=== PATIENT | female | born 1980 | race Caucasian/White ===

== ENCOUNTER 2017-11-25 08:03 | Day surgery (SDC) | payer OTHER ==
[2017-11-22 09:47] LABS: APPEARANCE,URINE CLEAR; BILIRUBIN,URINE NEGATIVE (NEGATIVE); COLOR,URINE COLORLESS; GLUCOSE, URINE NEGATIVE (NEGATIVE); KETONES,URINE NEGATIVE (NEGATIVE); LEUKOCYTE ESTERASE,URINE NEGATIVE (NEGATIVE); NITRITE,URINE NEGATIVE (NEGATIVE); PROTEIN,URINE NEGATIVE (NEGATIVE); URINE SPECIFIC GRAVITY 1.003; UROBILINOGEN,URINE NEGATIVE mg/dL (<2.0)
[2017-11-22 10:40] LABS: HEMATOCRIT 40.8 % (36.0-47.0); HEMOGLOBIN 13.8 g/dL (12.0-15.5); MEAN CORPUSCULAR HEMOGLOBIN 30.7 pg (27.0-33.4); MEAN CORPUSCULAR HGB CONC 33.8 g/dL (32.0-36.0); MEAN CORPUSCULAR VOLUME 91 fl (80-97); PLATELET COUNT 283 10^3/uL (150-450); RED BLOOD COUNT 4.49 10^6/uL (3.72-5.28); RED CELL DISTRIBUTION WIDTH 13.2 % (11.5-14.0); WHITE BLOOD COUNT 5.8 10^3/uL (4.0-10.5)
[2017-11-22 10:56] LABS: ALANINE AMINOTRANSFERASE 23 U/L (9-52); ALBUMIN 4.8 g/dL (3.5-5.0); ALKALINE PHOSPHATASE 37 U/L (38-126); ANION GAP 12 (5-19); ASPARTATE AMINO TRANSFERASE 15 U/L (14-36); BILIRUBIN,DIRECT 0.2 mg/dL (0.0-0.4); BILIRUBIN,TOTAL 0.5 mg/dL (0.2-1.3); BLOOD UREA NITROGEN 11 mg/dL (7-20); CALCIUM 9.9 mg/dL (8.4-10.2); CARBON DIOXIDE 26 mmol/L (22-30); CHLORIDE 104 mmol/L (98-107); GLUCOSE 86 mg/dL (75-110); POTASSIUM 4.2 mmol/L (3.6-5.0); SODIUM 142.1 mmol/L (137-145); TOTAL PROTEIN 7.5 g/dL (6.3-8.2)
[~2017-11-25 08:03] MED LIST: BUPIVACAINE HCL 0.25 % INJ/PF (2.5 MG/1 ML) 30 ML VIAL ONE; CEFAZOLIN 2 GM/D5W RTU 2 GM/50 ML RTUPB IV PRN; GABAPENTIN 400 MG CAPSULE PO PRN; LACTATED RINGERS 1000 ML IV PRN; LIDOCAINE 0.5% INJ-PF (5 MG/ML) 50 ML SDV SUBCUT PRN
[2017-11-25] MEDS ORDERED: LIDOCAINE 2% INJ-PF (20 MG/ML) 10 ML AMPUL ONE (10:12)
[2017-11-25] MEDS ORDERED: ACETAMINOPHEN 1,000 MG/100 ML RTUPB IV ONE (10:13)
[2017-11-25] MEDS ORDERED: HYDROMORPHONE HCL INJ/PF 2 MG/ML AMPULE ONE (10:13)
[2017-11-25] MEDS ORDERED: PROPOFOL INJ 200 MG/20 ML VIAL IV ONE (10:13)
[2017-11-25] MEDS ORDERED: MIDAZOLAM 2 MG/2 ML INJ ONE (10:13)
[2017-11-25] MEDS ORDERED: EPHEDRINE SULFATE INJ 50 MG/1 ML AMPULE ONE (10:13)
[2017-11-25] MEDS ORDERED: FENTANYL CITRATE INJ/PF 100 MCG/2 ML AMPUL IV PRN ×3 (12:08)
[2017-11-25] MEDS ORDERED: DIPHENHYDRAMINE HCL 50 MG/ML VIAL IV PRN (12:08)
[2017-11-25] MEDS ORDERED: ONDANSETRON HCL INJ/PF 4 MG/2 ML SDV IV PRN ×2 (12:08→13:10)
[2017-11-25] MEDS ORDERED: MEPERIDINE HCL/PF INJ 25 MG/1 ML DISP.SYRIN IV PRN (12:08)
[2017-11-25] MEDS ORDERED: PROMETHAZINE HCL INJ 25 MG/1 ML VIAL IV PRN ×2 (12:08)
[2017-11-25] MEDS ORDERED: OXYCODONE-ACETAMINOPHEN 5-325 MG TABLET PO PRN ×3 (12:08→13:10)
--- NOTE | 2017-11-25 12:47 | Discharge Summary ---
Discharge Summary (SDC) - Discharge Final Diagnosis: Pelvic pain Endometriosis Date of Surgery: 11/25/17 Discharge Date: 11/25/17 Condition: Good Forms: Post Operative Treatment or Instructions: Robotic assisted total laparoscopic hysterectomy Bilateral salpingectomy Referrals: DEREK PENNINGTON MD [NO LOCAL MD] - (Please call [phone] or [phone] to schedule your 2-3 week and 6-8 week postop appointments. If you are having clinical questions or concerns please call ROBBIE Shannon at [phone]. ) Discharge Diet: As Tolerated Respiratory Treatments at Home: Deep Breathing/Coughing Discharge Activity: Activity As Tolerated, Balance Activity w/Rest, Pelvic Rest , Slowly Increase Activity, No tub bath - you may shower Home Care Assistance: None Needed Report the Following to Your Physician Immediately: Vomiting, Increase in Pain, Fever over 101 Degrees, Redness, Swelling, Warmth, Drainage-Foul Smelling, Increased Vaginal Bleed, Urinary Infection Signs
[2017-11-25] MEDS ORDERED: FENTANYL CITRATE INJ/PF 100 MCG/2 ML AMPUL ONE (13:22)
[2017-11-25] MEDS ORDERED: ONDANSETRON HCL INJ/PF 4 MG/2 ML SDV ONE (14:34)
[2017-11-25] MEDS ORDERED: DEXAMETHASONE SOD PHOSPHATE INJ 4 MG/1 ML VIAL ONE (14:34)
[2017-11-25] MEDS ORDERED: KETOROLAC TROMETHAMINE 60 MG/2 ML SDV ONE (14:34)
[2017-11-25] MEDS ORDERED: ROCURONIUM BROMIDE INJ 50 MG/5 ML VIAL IV ONE (14:34)
[2017-11-25] MEDS ORDERED: VECURONIUM BROMIDE INJ 10 MG VIAL IV ONE (14:34)
[2017-11-25] MEDS ORDERED: METOCLOPRAMIDE HCL INJ/PF 10 MG/2 ML SDV ONE (14:34)
[2017-11-25] MEDS ORDERED: NEOSTIGMINE METHYLSULFATE 10 MG/10 ML VIAL ONE (14:34)
[2017-11-25] MEDS ORDERED: GLYCOPYRROLATE 1 MG/5 ML SYRINGE ONE (14:34)
[2017-11-25 17:54] VITALS: BP 113/79
--- NOTE | 2017-12-02 11:13 | OPERATIVE REPORT E ---
Operative Report NAME: HAMLET DUMONT : 1980 AGE: 37Y DATE OF SURGERY: 11/25/2017 ROOM: 224 PREOPERATIVE DIAGNOSES: 1. Pelvic pain. 2. Uterine fibroids. 3. Menorrhagia. POSTOPERATIVE DIAGNOSES: 1. Pelvic pain. 2. Uterine fibroids. 3. Menorrhagia. PROCEDURE: Robotic-assisted total laparoscopic hysterectomy with bilateral salpingectomy. SURGEON: DEREK PENNINGTON M.D. CAMPAIGN MANAGER: JANES FUENTES M.D. ANESTHESIA: General. COMPLICATIONS: None. ESTIMATED BLOOD LOSS: 100 mL. URINE OUTPUT: Clear at the end of the procedure. SPECIMENS: Uterus, cervix, and bilateral fallopian tubes. FINDINGS: Enlarged uterus, normal fallopian tubes, and normal-appearing ovaries bilaterally. INDICATIONS: This is a 37-year-old female with a history of pelvic pain, pelvic pressure, and menorrhagia refractory to medical management. After discussing the risks, benefits, and alternatives, including but not limited to observation, further medical management, physical therapy, endometrial ablation, uterine artery embolization, operative hysteroscopy, an open abdominal hysterectomy, total vaginal hysterectomy were all discussed with the patient and she elected for the above procedure. PROCEDURE NOTE: After the patient was properly consented, she was taken to the operating room where general anesthesia was then introduced and endotracheal intubation. The patient was transferred to a dorsal lithotomy position using adjustable Fuad stirrups and prepped and draped in the usual sterile fashion. A surgical timeout was held. We began with the placement of a VCare uterine manipulator in the typical fashion. A Butler catheter was inserted. Gloves were then changed and we proceeded above where 0.25% plain Marcaine local anesthetic was placed supraumbilically. A 12 mm skin incision was made with the scalpel followed by a Veress needle introduced into the peritoneal cavity with correct placement ascertained by drop in CO2 pressure to 2 mmHg. Pneumoperitoneum was established to a pressure of 15 mmHg. A 12 mm bladeless trocar was advanced into the pneumoperitoneum and immediate visualization with the camera demonstrated an atraumatic entry. We subsequently placed 2 right and 1 left lateral port following the typical routine of local anesthetic followed by a skin incision and placement of the port under direct visualization. With all ports in place, the patient was put in steep Trendelenburg position. The robot was then docked and I scrubbed out and proceeded to the robotic console. Pelvic anatomy was inspected and the findings were noted above. The ureters were identified by peristalsis in their usual course at the pelvic brim bilaterally. Dissection was began on the right side using the fenestrated bipolar grafts and the vessel sealer. The round ligament on the right was cauterized and transected. Next, the broad ligament was opened and dissected inferiorly and anteriorly to create the bladder flap, which was reduced inferiorly. Next, the fallopian tube was dissected from the tubo-ovarian ligament. This dissection was then continued along the lateral portion of the uterine body to connect with the previously transected round ligament by way also cauterizing the utero-ovarian ligament. The broad ligament was opened and the uterine artery was dissected out, identified, and then cauterized and transected as the area next to the lower uterine segment. Then, being very careful to hug the uterus during this portion of the surgery, the dissection was continued along the side of the cervix to the top of the coring. The same dissection was repeated on the left side. The areas of dissection were noted to be hemostatic. Next, the edge of the VCare cervical cup was identified and the vessel sealer was switched out for monopolar scissors. The colpotomy was initiated with monopolar scissors and carried out circumferentially until the specimen was freed and pulled through the vagina. The vaginal cuff was then closed with a running V-Loc suture incorporating the uterosacral pedicles for support as well. The pelvis was then irrigated copiously and hemostasis was noted to be excellent. FloSeal hemostatic agent was applied to the vaginal cuff. The abdomen was deflated and the robot was undocked and all instruments were removed. All CO2 insufflation was relieved. The patient was taken out of Trendelenburg and attention was turned to the 12 mm port site fascia, which was closed with an 0 Vicryl suture. The skin of the 8 and 12 mm laparoscopic ports were closed with 4-0 Monocryl in a subcuticular fashion and a Dermabond dressing was applied. Next, the Butler catheter was removed and a sponge stick was used to make sure that there was no extensive bleeding or lacerations in the vagina. After this, anesthesia was reversed. Sponge, lap, and needle counts were correct at the end of the procedure, and the patient was taken to the PACU in stable condition. DICTATING PHYSICIAN: DEREK PENNINGTON M.D. [id number] PHY#: [id number] ID: [id number] JOB#: [id number] ACCT: [id number] cc:DEREK PENNINGTON M.D. >
== END 2017-11-25 18:00 | disposition home or self-care (01) ==
LOC: OROUT 08:03 → 2S 14:22 → OROUT 18:00
PROVIDERS: ATTEND Obstetrics & Gynecology
DX: N80.0 Endometriosis of uterus (principal); D25.1 Intramural leiomyoma of uterus; N92.0 Excessive and frequent menstruation with regular cycle; R10.2 Pelvic and perineal pain; Z87.891 Personal history of nicotine dependence
CPT/HCPCS: 86900; 86901; 36415; 86850; 85027; 81025; 80053; 81001; 88307 ×2; 58571; J2250; J3490 ×5; J1100; J1885; J3010; J2765; J1170; J2405; J2704; J0690; J0131; S2900; 840